=== PATIENT | female | born 1945 | race Caucasian/White ===

== ENCOUNTER 2019-12-29 11:14 | Day surgery (SDC) | payer MEDICARE, BC ==
[~2019-12-29] VITALS: Ht 168.9 cm; Wt 84.9 kg
[~2019-12-29 11:14] MED LIST: ALBU0.63 NEB; AMLO10TA8 PO; APIX5TAB PO; ATOR10TA PO; CHOL40002 PO; DILT180C53 PO; FLUT1DIS3 INH; LOSA25TA25 PO; METO50TA82 PO; MONT10TA6 PO; ZOLP12.52 PO; [UNRECOGNIZED DRUG - CODE]; calcium
[2019-12-29] MEDS ORDERED: SODIUM CHLORIDE 0.9% 500 ML IV PRN (11:40)
[2019-12-29 11:47] VITALS: BP 127/92
[2019-12-29] MEDS ORDERED: DILT240C55 PO (12:00)
[2019-12-29] MEDS ORDERED: HYDROCHLOROTH12.5 MG PO (12:00)
[2019-12-29] MEDS ORDERED: PLEASE ENTER HEIGHT AND WEIGHT MC SCH (12:00)
[2019-12-29 12:14] LABS: ANION GAP 6 mmol/L (5-15); CALCIUM 9.6 mg/dL (8.5-10.1); CHLORIDE 111 mmol/L (98-107); CREATININE 0.72 mg/dL (0.55-1.02)
[2019-12-29] MEDS ORDERED: PROPOFOL 10 MG/ML, 20ML ONE (12:44)
== END 2019-12-29 14:22 | disposition home or self-care (01) ==
LOC: CACL 11:14
PROVIDERS: ATTEND Internal Medicine Cardiovascular Disease
DX: I48.91 Unspecified atrial fibrillation (principal); I10 Essential (primary) hypertension; E78.5 Hyperlipidemia, unspecified; Z79.01 Long term (current) use of anticoagulants; Z79.899 Other long term (current) drug therapy; Z88.0 Allergy status to penicillin
CPT/HCPCS: 36415; 80048; 92960; 93005; J2704

== ENCOUNTER → 2020-02-12 | Outpatient (CLI) | payer MEDICARE, BC ==
[~2020-02-12] MED LIST changes: +DILT240C55 PO; +HYDROCHLOROTH12.5 MG PO; +REGADENOSON 0.4 MG/5 ML SYRINGE ONE
== END | disposition home or self-care (01) ==
LOC: CFH 07:46
PROVIDERS: ATTEND Internal Medicine Cardiovascular Disease
DX: I48.91 Unspecified atrial fibrillation (principal)
CPT/HCPCS: 78452; 93017; A9502; J2785

== ENCOUNTER 2020-02-26 07:20 | Day surgery (SDC) | payer MEDICARE, BC ==
[~2020-02-26] VITALS: Ht 168.9 cm; Wt 84.1 kg
[~2020-02-26 07:20] MED LIST changes: -REGADENOSON 0.4 MG/5 ML SYRINGE ONE
[2020-02-26] MEDS ORDERED: PROPOFOL 10 MG/ML, 20ML ONE (07:28)
[2020-02-26] MEDS ORDERED: SODIUM CHLORIDE 0.9% 500 ML IV PRN (07:30)
[2020-02-26 07:40] VITALS: BP 141/43
[2020-02-26] MEDS ORDERED: METO50TA82 PO ×2 (07:54)
[2020-02-26] MEDS ORDERED: FLEC50TA25 PO (07:56)
[2020-02-26] MEDS ORDERED: DILT180C59 PO (07:57)
[2020-02-26 08:24] LABS: ANION GAP 6 mmol/L (5-15); CALCIUM 8.8 mg/dL (8.5-10.1); CHLORIDE 109 mmol/L (98-107); CREATININE 0.78 mg/dL (0.55-1.02)
== END 2020-02-26 10:15 | disposition home or self-care (01) ==
LOC: CACL 07:20
PROVIDERS: ATTEND Internal Medicine Cardiovascular Disease
DX: I48.91 Unspecified atrial fibrillation (principal); I10 Essential (primary) hypertension; E78.5 Hyperlipidemia, unspecified; J44.9 Chronic obstructive pulmonary disease, unspecified; Z79.01 Long term (current) use of anticoagulants; Z79.899 Other long term (current) drug therapy; Z88.0 Allergy status to penicillin
CPT/HCPCS: 36415; 80048; 92960; J2704